=== PATIENT | female | born 1950 | race Caucasian/White ===

== ENCOUNTER 2018-12-02 05:57 | Day surgery (SDC) | payer MEDICARE, OTHER ==
[2018-11-25 09:12] LABS: ABSOLUTE BASOPHILS # (AUTO) 0.1 10^3/uL (0.0-0.2); ABSOLUTE LYMPHOCYTES (AUTO) 1.3 10^3/uL (0.5-4.7); ABSOLUTE MONOCYTES (AUTO) 0.4 10^3/uL (0.1-1.4); ABSOLUTE NEUT (AUTO) 4.3 10^3/uL (1.7-8.2); BASOPHILS % (AUTO) 1.3 % (0-2); EOSINOPHILS % (AUTO) 0.6 % (0-6); HEMOGLOBIN 13.9 g/dL (12.0-15.5); LYMPHOCYTES % (AUTO) 21.2 % (13-45); MEAN CORPUSCULAR HEMOGLOBIN 32.4 pg (27.0-33.4); MEAN CORPUSCULAR HGB CONC 33.8 g/dL (32.0-36.0); MEAN CORPUSCULAR VOLUME 96 fl (80-97); MONOCYTES % (AUTO) 6.1 % (3-13); PLATELET COUNT 248 10^3/uL (150-450); RED BLOOD COUNT 4.28 10^6/uL (3.72-5.28); SEGMENTED NEUTROPHILS % (AUTO) 70.8 % (42-78); TOTAL CELLS COUNTED % (AUTO) 100 %; WHITE BLOOD COUNT 6.1 10^3/uL (4.0-10.5)
[2018-11-25 09:20] LABS: ANION GAP 8 (5-19); BLOOD UREA NITROGEN 24 mg/dL (7-20); CALCIUM 10.8 mg/dL (8.4-10.2); CARBON DIOXIDE 33 mmol/L (22-30); CHLORIDE 95 mmol/L (98-107); GLUCOSE 100 mg/dL (75-110)
--- NOTE | 2018-11-25 21:43 | EKG REPORT ---
SEVERITY:- BORDERLINE ECG - SINUS RHYTHM VENTRICULAR PREMATURE COMPLEX CONSIDER ANTERIOR INFARCT : Confirmed by: Bandar Durham 25-Nov-2018 21:42:10
[~2018-12-02 05:57] MED LIST: CEFAZOLIN SODIUM 2 GM in DEXTROSE 5%-WATER 100 ML IV PRN; LACTATED RINGERS 1000 ML IV PRN; LIDOCAINE 0.5% INJ-PF (5 MG/ML) 50 ML SDV SUBCUT PRN
[2018-12-02] MEDS ORDERED: MIDAZOLAM 2 MG/2 ML INJ ONE (06:25)
[2018-12-02] MEDS ORDERED: ONDANSETRON HCL INJ/PF 4 MG/2 ML SDV ONE (06:25)
[2018-12-02] MEDS ORDERED: FENTANYL CITRATE INJ/PF 100 MCG/2 ML AMPUL ONE (06:25)
[2018-12-02] MEDS ORDERED: DEXAMETHASONE SOD PHOSPHATE INJ 4 MG/1 ML VIAL ONE (06:25)
[2018-12-02] MEDS ORDERED: PROPOFOL INJ 200 MG/20 ML VIAL IV ONE (06:25)
[2018-12-02] MEDS ORDERED: LIDOCAINE 0.5% INJ-PF (5 MG/ML) 50 ML SDV ONE (06:27)
[2018-12-02] MEDS ORDERED: BUPIVACAINE HCL 0.5 % INJ/PF 30 ML SDV ONE (07:17)
[2018-12-02] MEDS ORDERED: PROMETHAZINE HCL INJ 25 MG/1 ML VIAL IV PRN ×2 (07:47)
[2018-12-02] MEDS ORDERED: ONDANSETRON HCL INJ/PF 4 MG/2 ML SDV IV PRN ×2 (07:47→09:30)
[2018-12-02] MEDS ORDERED: DIPHENHYDRAMINE HCL 50 MG/ML VIAL IV PRN (07:47)
[2018-12-02] MEDS ORDERED: MEPERIDINE HCL/PF INJ 25 MG/1 ML DISP.SYRIN IV PRN (07:47)
[2018-12-02] MEDS ORDERED: FENTANYL CITRATE INJ/PF 100 MCG/2 ML AMPUL IV PRN ×3 (07:47)
[2018-12-02] MEDS ORDERED: HYDROCODONE/ACETAMINOPHEN 5-325 MG TABLET PO PRN (09:30)
--- NOTE | 2018-12-02 09:31 | Discharge Summary ---
Discharge Summary (SDC) - Discharge Final Diagnosis: Left thumb CMC arthritis Date of Surgery: 12/02/18 Discharge Date: 12/02/18 Condition: Good Treatment or Instructions: Schedule Follow Up w/ Dr. Elpidio Snider @ [facility] for Surgery to be seen in 10-14 days or as scheduled [place]: [place]: [place]: Ice and elevate Keep splint clean/dry/intact, do not remove. If your fingers become numb please unwrap the [place] wrap but leave the splint in place, if the sensation does not return within 30 minutes please return to the emergency department. May begin finger range of motion attempting to make full fist. Please use ibuprofen (Motrin or Advil) 600-800 mg every 8 hours as needed for pain or fever DO NOT TAKE w/ TORADOL may use once TORADOL complete. You may also use acetaminophen (Tylenol) 1000 mg every 4-6 hours as needed for pain or fever. Please be aware that many medications contain acetaminophen, do not exceed a total of 1000 mg of acetaminophen every 6 hours. If ibuprofen and acetaminophen are not sufficient for your pain you may take the Percocet/Culbertson. Please be aware that the Percocet/Culbertson does contain Tylenol. Stool softener of choice when on pain medication. USE OF [id number] IBUPROFEN: Ibuprofen (Advil, Nuprin, Medipren, Motrin IB) is a medication for fever and pain control. In addition, it has anti- inflammatory effects which may be beneficial, especially in the treatment of injuries. It's best to take ibuprofen with food. Persons with ulcer disease or allergy to aspirin should notify their physician of this before taking ibuprofen. Ibuprofen can be given every four to six hours, for a total of four doses daily. Age Pain or fever dose Antiinflammatory dose 6-8 yr 200 mg (1 tab) 200 mg (1 tab) 9-11 yr 200 mg (1 tab) 200-400 mg (1-2 tab) 11-14 yr 200-400 mg (1-2 tab) 400 mg (2 tab) 15-adult 400 mg (2 tab) 600 mg (3 tab) ORAL NARCOTIC MEDICATION: You have been given a prescription for pain control. This medication is a narcotic. It's best taken with food, as nausea can result if taken on an empty stomach. Don't operate machinery or drive within six hours of taking this medication. Do not combine this medicine with alcohol, or with any medication which can cause sedation (such as cold tablets or sleeping pills) unless you get permission from the physician. Narcotics tend to cause constipation. If possible, drink plenty of fluids and eat a diet high in fiber and fruits. Please be aware that prescription narcotics also have the potential for abuse. People become addicted to these medications because of the general sense of wellbeing that they induce. This feeling along with a significant reduction in tension, anxiety, and aggression provides a stimulating seductive quality to these drugs. Once your pain is under control, we encourage you to discard your unused narcotics. Prescriptions: Ketorolac Tromethamine [Toradol 10 mg Tablet] 10 mg PO Q8HP PRN #12 tablet PRN Reason: Hydrocodone/Acetaminophen [Culbertson 5-325 mg Tablet] 1 tab PO Q6 PRN #25 tablet PRN Reason: Ondansetron HCl [Zofran 4 mg Tablet] 1 tab PO Q6 #10 tablet Referrals: AUGUST MIRELES PA [Primary Care Provider] - Discharge Activity: No Lifting Over 10 Pounds, No Lifting/Push/Pulling Report the Following to Your Physician Immediately: Unusual Bleeding, Redness, Swelling, Warmth, Increased Soreness
--- NOTE | 2018-12-02 09:32 | Operative Report ---
Operative Report DATE OF SURGERY: 12/02/18 PREOPERATIVE DIAGNOSIS: Left thumb CMC arthritis, STT arthritis POSTOPERATIVE DIAGNOSIS: Same OPERATION: Left thumb CMC arthroplasty with trapeziectomy, ligament reconstruction with tendon interposition utilizing FCR autograft, partial resection proximal trapezoid SURGEON: LINDY THORPE ANESTHESIA: GA COMPLICATIONS: None ESTIMATED BLOOD LOSS: Minimal PROCEDURE: Indication for above procedure: 68-year-old female with long-standing history of left thumb CMC arthritis. Attempted conservative measures including immobilization and anti-inflammatories and injections without resolution of patient's symptoms. After discussing additional treatment options decision was made to proceed with operative intervention. Risks and benefits were explained patient verbalized understanding consented for surgical procedure. Procedure In Detail: Patient was seen and evaluated in the preoperative holding area. The Left upper extremity was initialized and marked. Patient received 2g of Ancef IV for bacterial prophylaxis. Patient was taken back to the operative room where transferred to the operative table and placed under general anesthesia. Once they were adequately anesthetized and a nonsterile tourniquet was placed on the upper extremity. A surgical team debriefing was performed ensuring all instrumentation was available, the surgical procedure was discussed with possible concerns reviewed. The upper extremity was prepped with chlorhexidine and alcohol and draped in a sterile fashion. A timeout was done identifying correct patient, procedure and extremity everyone in attendance agree with this and verbalized no concerns. The extremity was exsanguinated the tourniquet was inflated to 200 mmHg. A longitudinal skin incision was made in line with the first dorsal compartment. I then meticulously dissected down to the interval of the APL and EPB identifying the superficial radial nerve branches which were retracted. I then identified the radial artery which was protected throughout the entirety of the case with a [place] elevator. A T-shaped capsulotomy was made at the CMC joint of the thumb. A freer elevator was used to anita out the CMC joint, fluoroscopy confirmed the thumb cmc joint placement. The capsule was released off of the trapezium circumferentially. The FCR insertion volarly was protected. Using a rongeur the trapezium was excised as one unit. I then removed any residual loose bodies and bone fragments. I then inspected the STT joint. There was advanced degenerative changes of the distal scaphoid and proximal trapezoid thus the proximal third of the trapezoid was excised. I then turned my attention to harvesting the FCR tendon. The FCR was identified and 2 transverse incisions were made. The entire FCR tendon was harvested. The tendon was then retrieved from the CMC joint of the thumb. The base of the thumb metacarpal was rongeured to allow for cancellous tendon healing. I tenolysed the FCR up to its insertion at the second metacarpal. Using a rongeur the 1st metacarpal base osteophytes were removed. Bone tunnels were created with the use of #1 PDS suture in a horizontal mattress fashion while my hearing and speech assistant held distraction at the thumb CMC joint. Once this was complete, optimal stability of the CMC joint was achieved without evidence of subsidence. I fixated the remaining FCR tendon to the FCR tendon that remained attached the to second metacarpal with 3-0 Vicryl to provide interposition. Under direct visualization there was no evidence of subsidence none in the thumb metacarpal scaphoid articulation but adequate spacing along the proximal trapezoid and scaphoid without collapse. This area was also interposed with remaining FCR tendon. Fluoroscopy was then obtained which demonstrated good stability of the CMC arthroplasty without evidence of subsidence at rest or with stress. The wound was then copiously irrigated with normal saline. A peripheral vasculature is carefully coagulated with bipolar cautery The capsule was closed with interrupted 3-0 vicryl. Superficial radial nerve was once again inspected and protected during skin closure. Skin was closed with 4-0 Monocryl subcuticular suture reinforced with Dermabond and Steri-Strips.. The patient was placed in a thumb spica splint. Sponge counts, instrument counts and needle counts were correct. Patient was extubated and transferred to the operative stretcher. There was no intraoperative complications patient tolerated procedure well with stable to PACU. Postoperative plan: Patient will continue the splint for 2 weeks. Patient will then be transitioned to a cast for an additional 2 weeks. They will then begin occupational therapy at 4 weeks and will be fitted for a thermoplastic splint at that time.
[2018-12-02] MEDS ORDERED: LIDOCAINE 2% INJ (20 MG/ML) 20 ML MDV ONE (09:38)
[2018-12-02] MEDS ORDERED: LIDOCAINE 2%/EPINEPHRINE INJ 20 ML VIAL ONE (09:38)
[2018-12-02] MEDS ORDERED: ROPIVACAINE HCL 0.5% INJ/PF (5 MG/1 ML) 30 ML SDV ONE (09:38)
--- NOTE | 2018-12-02 14:47 | RADIOLOGY REPORT (SQ) ---
EXAM DESCRIPTION: NO CHG FLUORO; WRIST LEFT 3 VIEWS COMPLETED DATE/TIME: 12/02/2018 9:55 am REASON FOR STUDY: ARTHROPLASTY LEFT WRIST ASST WITH FLUORO IN OR COMPARISON: None. FLUOROSCOPY TIME: 7 seconds 3 Images saved to PACS LIMITATIONS: None. PROCEDURE: Arthroplasty left wrist. FINDINGS: Images from fluoro document the procedure. IMPRESSION: Arthroplasty of the left wrist. Refer to operative note for further information. COMMENT: PQRS 6045F: Fluoroscopy time of the procedure is documented in the report. TECHNICAL DOCUMENTATION: JOB ID: [id number] [employer]- All Rights Reserved Reading location - IP/workstation name: [email or web address]
--- NOTE | 2018-12-02 14:47 | RADIOLOGY REPORT (SQ) ---
EXAM DESCRIPTION: NO CHG FLUORO; WRIST LEFT 3 VIEWS COMPLETED DATE/TIME: 12/02/2018 9:55 am REASON FOR STUDY: ARTHROPLASTY LEFT WRIST ASST WITH FLUORO IN OR COMPARISON: None. FLUOROSCOPY TIME: 7 seconds 3 Images saved to PACS LIMITATIONS: None. PROCEDURE: Arthroplasty left wrist. FINDINGS: Images from fluoro document the procedure. IMPRESSION: Arthroplasty of the left wrist. Refer to operative note for further information. COMMENT: PQRS 6045F: Fluoroscopy time of the procedure is documented in the report. TECHNICAL DOCUMENTATION: JOB ID: [id number] [employer]- All Rights Reserved Reading location - IP/workstation name: [email or web address]
[2018-12-02 16:02] VITALS: BP 133/60
== END 2018-12-02 11:50 | disposition home or self-care (01) ==
LOC: OROUT 05:57
PROVIDERS: ATTEND Orthopaedic Surgery
DX: M18.0 Bilateral primary osteoarthritis of first carpometacarpal joints (principal); M19.032 Primary osteoarthritis, left wrist; M79.642 Pain in left hand; Z79.899 Other long term (current) drug therapy
CPT/HCPCS: 93005; 36415 ×2; 84132; 85025; 80048; 73110; 93010; 01830; 25447; 25312; 25210; J2795; J2250; J3490 ×3; J0690; J1100; J3010; J2405; J7060; J2704

== ENCOUNTER → 2019-01-14 | Outpatient (CLI) | payer MEDICARE, OTHER ==
--- NOTE | 2019-01-14 18:36 | WOMENS IMAGING REPORT ---
EXAM DESCRIPTION: 3D SCREENING MAMMO BILAT COMPLETED DATE/TIME: 01/14/2019 2:10 pm REASON FOR STUDY: Z12.31 SCREENING MAMMO Z12.31 ENCNTR SCREEN MAMMOGRAM FOR MALIGNANT NEOPLASM OF B RE COMPARISON: 2014, 2012 EXAM PARAMETERS: Standard craniocaudal and mediolateral oblique views of each breast recorded using digital acquisition and breast tomosynthesis. Read with the assistance of CAD. .FORMER[facility] - [employer]er Teacher Version 9.2 LIMITATIONS: None. FINDINGS: Findings present which are benign by mammographic criteria. No suspicious masses, calcific ations or architectural distortion. Pertinent benign findings: Benign calcifications bilaterally Benign mammographic findings may include one or more of the following: Smooth masses, popcorn/rim/coa rse calcifications, asymmetries, post-procedure changes, and lesions with long-standing stability. IMPRESSION: BENIGN MAMMOGRAPHIC FINDINGS. BIRADS 2 BREAST DENSITY: d. The breasts are extremely dense, which lowers the sensitivity of mammography. BIRAD: ASSESSMENT: 2 BENIGN FINDING(S) RECOMMENDATION: ROUTINE SCREENING Please continue yearly bilateral screening mammography/tomosynthesis in January 2020 COMMENT: The patient has been notified of the results by letter per SA requirements. Additional no tification policies are in place for contacting patient with suspicious or incomplete findings. Quality ID #[id number]: The [employer] recommends an annual screening mammogram for women aged 40 years or over. This facility utilizes a reminder system to ensure that all patients receive reminder letters, and/or direct phone calls for appointments. This includes reminders for routine scr eening mammograms, diagnostic mammograms, or other Breast Imaging Interventions when appropriate. Th is patient will be placed in the appropriate reminder system. TECHNICAL DOCUMENTATION: FINDING NUMBER: (1) ASSESSMENT: (1) JOB ID: [id number] [employer]- All Rights Reserved Reading location - IP/workstation name: [email or web address]
== END ==
LOC: WI 13:25
PROVIDERS: ATTEND Physician Assistant
DX: Z12.31 Encounter for screening mammogram for malignant neoplasm of breast (principal)
CPT/HCPCS: 77063; 77067